=== PATIENT | female | born 1980 | race Caucasian/White ===

== ENCOUNTER 2018-03-03 11:03 | Outpatient (CLI) | payer OTHER | END 2018-03-03 13:04 | disposition home or self-care (01) | LOC: NST 11:03 | DX: Z34.83 Encounter for supervision of other normal pregnancy, third trimester (principal) ==

== ENCOUNTER 2018-03-11 09:05 | Outpatient (CLI) | payer OTHER | END 2018-03-11 10:02 | disposition home or self-care (01) | LOC: NST 09:05 | DX: Z34.83 Encounter for supervision of other normal pregnancy, third trimester (principal) ==

== ENCOUNTER 2018-03-18 09:41 | Inpatient (IN) | payer OTHER ==
[~2018-03-18] VITALS: Ht 160 cm; Wt 97.1 kg
[2018-03-19] MEDS ORDERED: PRENATAL TABLE1 EAC3 PO (07:58)
== END 2018-03-21 14:17 | DRG 798 ==
LOC: LDR 03-19 06:34 → OB/GYN 03-19 06:34
PROC: 10E0XZZ Delivery of Products of Conception, External Approach (ICD-10-PCS; principal; 2018-03-19)
PROC: 4A1HXCZ Monitoring of Products of Conception, Cardiac Rate, External Approach (ICD-10-PCS; 2018-03-19)
PROC: 3E033VJ Introduction of Other Hormone into Peripheral Vein, Percutaneous Approach (ICD-10-PCS; 2018-03-19)
PROC: 0HQ9XZZ Repair Perineum Skin, External Approach (ICD-10-PCS; 2018-03-19)
PROC: 0UB70ZZ Excision of Bilateral Fallopian Tubes, Open Approach (ICD-10-PCS; 2018-03-20)
DX: O70.0 First degree perineal laceration during delivery (principal); Z37.0 Single live birth; Z3A.38 38 weeks gestation of pregnancy; Z30.2 Encounter for sterilization